=== PATIENT | female | born 1990 | race Caucasian/White ===

== ENCOUNTER 2017-01-16 16:04 | Emergency (ER) | payer BC ==
[~2017-01-16] VITALS: Ht 162.6 cm; Wt 84.0 kg
[2017-01-16 16:06] VITALS: Ht 162.6 cm; Wt 84.0 kg
[2017-01-16] MEDS ORDERED: KETOROLAC TROMETHAMINE 60 MG/2 ML VIAL IM STA (16:21)
--- NOTE | 2017-01-16 16:29 | EMERGENCY ROOM VISIT NOTE ---
History First contact with patient: 16:11 Chief Complaint: BACK PAIN Stated Complaint: EXTREME LOW BACK PAIN , LT SIDE History of Present Illness The patient is a 26 year old female who presents to the Emergency Room with complaints of low back pain. The patient states that she has had pain across the low back for the past 2 weeks. 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 They gave her some exercises to perform and she has been doing these at home. She states she has been using a heating pad without much relief. It is difficult for her to sleep. She has taken anti-inflammatories on occasion. She saw one of the physical therapist today, and they told her that her hip was out of alignment. The patient is concerned that her pain could be due to a kidney stone. She denies any urinary symptoms, abdominal pain , nausea or vomiting. She denies any numbness/weakness, radiation of the pain, bowel or bladder incontinence. Review of Systems A complete 10 point review of systems was reviewed with the patient with pertinent positives and negatives as per history of present illness. All else were negative. Social History Smoking Status: Never Smoker Current/Historical Medications Scheduled Control Pills ( Control Pills), 1 TAB PO DAILY Physical Exam Vital Signs Date Time Temp Pulse Resp B/P (MAP) Pulse Ox O2 Delivery O2 Flow Rate FiO2 01/16/17 18:00 36.9 82 16 121/73 96 01/16/17 17:59 82 16 121/73 96 Room Air 01/16/17 16:06 36.9 98 16 132/92 93 Room Air Physical Exam VITALS: Vitals are noted on the nurse's note and reviewed by myself. Vital signs stable. GENERAL: This is a 26-year-old female, in no acute distress but appears to be in pain, well-developed well-nourished. SKIN: No rashes noted. HEART: Regular rate and rhythm without murmurs gallops or rubs. LUNGS: Clear to auscultation bilaterally without wheezes, rales or rhonchi. ABDOMEN: Soft, no tenderness to palpation. No CVA tenderness. MUSCULOSKELETAL: There is vague tenderness to palpation across the lumbar region. No tenderness of the lumbar spinous processes. Full range of motion of bilateral lower extremities. Strength 5/5 in bilateral lower extremities. NEURO: Patient was alert and oriented to person place and time. Normal sensation to light and sharp touch. Deep tendon reflexes 2+ throughout. No focal neurological deficits. Medical Decision & Procedures ER Provider Diagnostic Interpretation: L-SPINE MIN 4 VIEWS ROUTINE HISTORY: Back pain left low back pain COMPARISON: None. FINDINGS: There is no fracture. No subluxation. Disc spaces are preserved. IMPRESSION: No fracture or subluxation within the lumbar spine. Laboratory Results Test 01/16/17 16:20 Urine Test NEG (NEG) Medications Administered Medications (Trade) Dose Ordered Sig/Mikey Route Start Time Stop Time Status Last Admin Dose Admin Ketorolac Tromethamine (Toradol Inj) 60 mg NOW STAT IM 01/16/17 16:21 01/16/17 16:23 DC 01/16/17 16:33 60 MG Medical Decision Differential diagnosis includes cauda equina syndrome, cord compression, disc herniation, muscle spasm, lumbar strain, epidural abscess, malignancy, transverse myelitis, urinary tract infection, colitis, diverticulitis, kidney stone, among others. The patient was evaluated as above. Urine dipstick and urine were obtained. was negative. Dipstick showed trace blood, but the patient is due for her menstrual period soon. X-rays of the lumbar spine were obtained and read by radiology with no acute findings. The patient was given 60 mg IM Toradol with significant relief of symptoms. I discussed options of care with the patient. I am not highly suspicious of a kidney stone given the description of her symptoms, however I did offer workup for kidney stones to include CT and laboratory testing. The patient agreed that this was not necessary at this time. She was instructed to take anti-inflammatories on a regular basis. She has muscle relaxers at home that she will take as needed. She was encouraged to continue following up with orthopedics and will return here for any new/concerning symptoms. She verbalized understanding of my assessment and treatment plan and was discharged home in good condition. Medication Reconcilliation Current Medication List: was personally reviewed by me Blood Pressure Screening Patient's blood pressure: Normal blood pressure Impression Primary Impression: Lumbar back pain Departure Information Dispostion Home / Self-Care Condition GOOD Referrals No Doctor, Assigned (PCP) Patient Instructions [facility] Additional Instructions Aleve as discussed. Continue the heating pad over the back for relief. Follow-up with orthopedics. Return to the emergency department with significantly worsening pain, bowel/ bladder incontinence, numbness/weakness of the legs, urinary symptoms, or any other new/concerning symptoms. Problem Qualifiers Primary Impression: Lumbar back pain Chronicity: acute Back pain laterality: bilateral Sciatica presence: without sciatica Qualified Codes: M54.5 - Low back pain
[2017-01-16] MEDS ORDERED: BCPILLS PO (16:35)
--- NOTE | 2017-01-16 17:01 | DIAGNOSTIC IMAGING REPORT ---
L-SPINE MIN 4 VIEWS ROUTINE HISTORY: Back pain left low back pain COMPARISON: None. FINDINGS: There is no fracture. No subluxation. Disc spaces are preserved. IMPRESSION: No fracture or subluxation within the lumbar spine. The above report was generated using voice recognition software. It may contain grammatical, syntax or spelling errors. Electronically signed by: Robert Castillo M.D. 01/16/2017 4:59 PM Dictated Date/Time: 01/16/2017 4:59 PM
[2017-01-16 18:00] VITALS: BP 121/73; PULSE 82; TEMP 36.9; O2SAT 96
== END 2017-01-16 18:01 | disposition home or self-care (01) ==
LOC: C.EDB 16:05 → C.EDA 18:01
DX: M54.5 Low back pain (principal); Z79.3 Long term (current) use of hormonal contraceptives